=== PATIENT | male | born 1945 | race Caucasian/White ===

== ENCOUNTER 2020-06-05 11:17 | Emergency (ER) | payer MEDICARE, SELFPAY ==
[2020-06-05 11:43] VITALS: BP 157/96; PULSE 75; RESP 16; TEMP 36.5; O2SAT 99
--- NOTE | 2020-06-05 12:03 | ED.GENADULT ---
HPI - General Adult General Chief complaint: Wound/Laceration Stated complaint: laceration right thumb Time Seen by Provider: 06/05/20 12:03 Source: patient Mode of arrival: ambulatory Limitations: no limitations History of Present Illness HPI narrative: 74-year-old male patient presents to the [facility] with complaints of a laceration to the right thumb. Patient states he lacerated with a mandolin yesterday. Patient states that his last tetanus shot was probably over 8 years ago. Patient states that he is coming in today basically because he cannot get it to stop bleeding. Denies being on any blood thinners except for a daily 81 mg baby aspirin. Related Data Home Medications Medication Instructions Recorded Confirmed aspirin 81 mg tablet,delayed 81 mg PO DAILY 08/01/19 06/05/20 release cholecalciferol (vitamin D3) 50 2,000 unit PO DAILY 08/01/19 06/05/20 mcg (2,000 unit) capsule multivitamin 1 tablet PO DAILY 08/01/19 06/05/20 vitamin B complex 1 cap PO DAILY 08/01/19 06/05/20 folic acid 1 mg tablet 2 mg PO DAILY tablet 08/09/19 06/05/20 methotrexate sodium 2.5 mg tablet 20 mg PO WEEKLY tablet 08/09/19 06/05/20 golimumab 12.5 mg/mL intravenous 2 mg/kg IVPB .q8w ml 02/28/20 06/05/20 solution diclofenac sodium 75 mg PO PRN 06/05/20 06/05/20 Allergies Allergy/AdvReac Type Severity Reaction Status Date / Time nabumetone Allergy Mild Hives Verified 06/05/20 11:50 Review of Systems Review of Systems: Narrative: CONSTITUTIONAL: Denies fever, chills, or sweats. EYES: Denies visual changes, redness, or discharge. ENT: Denies rhinorrhea, congestion, sore throat, or otalgia. CARDIOVASCULAR: Denies chest pain, palpitations, or edema. RESPIRATORY: Denies cough or dyspnea. GASTROINTESTINAL: Denies abdominal pain, nausea, vomiting, or diarrhea. GENITOURINARY: Denies dysuria or hematuria. SKIN: Denies rash or itching. Positive laceration to right thumb since yesterday MUSCULOSKELETAL: Denies back pain, joint pain, or myalgia. NEUROLOGIC: Denies headache, numbness, or weakness. PSYCHIATRIC: Denies anxiety or depression. [facility] Past Medical History Medical History (Updated 06/05/20 @ 12:16 by MELITA Pereyra) Arthritis B12 deficiency BPH (benign prostatic hyperplasia) Essential (primary) hypertension Hypercholesterolemia Hyperlipidemia Lower extremity edema Neuropathy Prostate cancer Rectal polyp Rheumatoid arthritis Sleep apnea Vitamin D deficiency, unspecified Surgical History Surgical History (Updated 06/05/20 @ 12:06 by MELITA Pereyra) H/O inguinal hernia repair History of orthopedic surgery Right knee, heel spur surgery Hx of tonsillectomy Joint replaced Right TKA 01/2012, left TKA 04/2012 Family History Family History Mother Patient's mother is Carcinoma of colon Father Patient's father is Acute myocardial infarction Sibling Family history of malignant neoplasm of urinary bladder Social History Social History Smoking status: Former smoker Second hand tobacco smoke exposure: No Smoking end date: 08/21/77 Alcohol intake: current Drinks per week: 6 Substance use: never Gender identity (if verbalized by the patient): Male Comments At the time of my signature I agree with nursing past medical history, surgical, social, and family history. There is no relevant family history pertinent to the presenting complaint. Exam Narrative: Exam Narrative: GENERAL: Well-appearing, well-nourished, and in no acute distress. HEAD: Normocephalic, atraumatic. EYES: PERRLA and EOMI. ENT: Nares clear, no rhinorrhea or epistaxis. Mucous membranes moist. NECK: Supple. No lymphadenopathy CHEST: Clear to auscultation. No respiratory distress. HEART: Regular rate and rhythm. No murmur heard. Normal peripheral pulses. ABDOMEN: Soft, nontender, nondistended,
[2020-06-05] MEDS: TETANUS,DIPHTHERIA,AC PERTUSSIS ADULT (0.5 ML) BOOSTRIX IM (12:19)
[2020-06-05] MEDS: CELLULOSE OXIDIZED 2 x 14 INCH 1 PKT XX (12:23)
== END 2020-06-05 12:31 | disposition home or self-care (01) ==
PROVIDERS: Emergency Provider Nurse Practitioner Family; PCP Internal Medicine
DX: S61.001A Unspecified open wound of right thumb without damage to nail, initial encounter (principal); W27.8XXA Contact with other nonpowered hand tool, initial encounter; Z23 Encounter for immunization; M19.90 Unspecified osteoarthritis, unspecified site; N40.0 Benign prostatic hyperplasia without lower urinary tract symptoms; I10 Essential (primary) hypertension; E78.00 Pure hypercholesterolemia, unspecified; E78.5 Hyperlipidemia, unspecified; G47.33 Obstructive sleep apnea (adult) (pediatric); E55.9 Vitamin D deficiency, unspecified; M06.9 Rheumatoid arthritis, unspecified; Z85.46 Personal history of malignant neoplasm of prostate; G62.9 Polyneuropathy, unspecified; Z96.653 Presence of artificial knee joint, bilateral; Z87.891 Personal history of nicotine dependence
CPT/HCPCS: 12001; 90471; 90715; 99212; G0463

== ENCOUNTER 2021-09-15 10:53 | Outpatient (RCR) | payer MEDICARE, SELFPAY ==
[2021-09-15] MEDS: FAMOTIDINE 20 MG TABLET PO (13:22)
[2021-09-15] MEDS: ACETAMINOPHEN 325 MG TABLET 650 MG PO (13:22)
[2021-09-15] MEDS: diphenhydrAMINE HCl CAP 25 MG CAPSULE PO (13:22)
[2021-09-15 13:27] VITALS: BP 143/70; PULSE 88; RESP 20; TEMP 36.1; O2SAT 99
[2021-09-15 14:15] VITALS: BP 116/67; PULSE 61; O2SAT 94
[2021-09-15 14:58] VITALS: BP 145/69; PULSE 82; O2SAT 97
== END 2021-09-15 17:00 ==
LOC: AMCINF 10:53
PROVIDERS: PCP Internal Medicine; Visit Provider Internal Medicine Hematology & Oncology
DX: U07.1 COVID-19 (principal); I10 Essential (primary) hypertension; Z85.46 Personal history of malignant neoplasm of prostate
CPT/HCPCS: A9270; M0247; Q0247

== ENCOUNTER 2021-12-14 09:36 | Outpatient (CLI) | payer MEDICARE, SELFPAY ==
--- NOTE | 2021-12-14 11:00 | NEURO_ITS ---
Impression: # Complains of numbness of hands. # Bilateral Carpal Tunnel Syndrome, left more than right. # Bilateral ulnar neuropathy across the elbows. # Mildly abnormal needle/EMG exam. Nerve Conduction Studies Anti Sensory Summary Table Stim Site NR Peak (ms) P-T Amp (?V) Site1 Site2 Delta-P (ms) Dist (cm) Ignacio (m/s) Left Median Anti Sensory (2-3nd Digit) Wrist 5.3 15.0 Wrist 2-3nd Digit 5.3 14.0 26 Wrist 5.3 8.3 Wrist 2-3nd Digit 5.3 14.0 26 Right Median Anti Sensory (2-3nd Digit) Wrist 5.0 14.1 Wrist 2-3nd Digit 5.0 14.0 28 Wrist 4.6 5.2 Wrist 2-3nd Digit 5.0 14.0 28 Left Radial Anti Sensory (Base 1st Digit) Wrist 2.6 6.8 Wrist Base 1st Digit 2.6 0.0 Right Radial Anti Sensory (Base 1st Digit) Wrist 2.8 5.5 Wrist Base 1st Digit 2.8 0.0 Left Ulnar Anti Sensory (5th Digit) Wrist 2.8 12.8 Wrist 5th Digit 2.8 14.0 50 Right Ulnar Anti Sensory (5th Digit) Wrist 3.8 10.8 Wrist 5th Digit 3.8 14.0 37 Motor Summary Table Stim Site NR Onset (ms) O-P Amp (mV) Site1 Site2 Delta-0 (ms) Dist (cm) Ignacio (m/s) Left Median Motor (Abd Poll Brev) Wrist 5.6 1.4 Elbow Wrist 6.7 32.0 48 Elbow 12.3 1.3 Right Median Motor (Abd Poll Brev) Wrist 4.6 2.7 Elbow Wrist 5.6 29.0 52 Elbow 10.2 2.4 Left Ulnar Motor (Abd Dig Minimi) Wrist 3.0 4.5 A Elbow Wrist 7.4 34.0 46 A Elbow 10.4 1.9 B Elbow Wrist 5.7 28.0 49 B Elbow 8.7 1.9 Right Ulnar Motor (Abd Dig Minimi) Wrist 2.7 4.6 A Elbow Wrist 7.5 31.0 41 A Elbow 10.2 2.8 B Elbow Wrist 5.0 23.0 46 B Elbow 7.7 3.3 F Wave Studies NR F-Lat (ms) L-R F-Lat (ms) Left Median (Mrkrs) (Abd Poll Brev) 31.45 0.99 Right Median (Mrkrs) (Abd Poll Brev) 32.45 0.99 Left Ulnar (Mrkrs) (Abd Dig Min) 32.15 2.31 Right Ulnar (Mrkrs) (Abd Dig Min) 29.84 2.31 EMG Side Muscle Nerve Root Ins Act Fibs Amp Dur Recrt Comment Right 1stDorInt Ulnar C8-T1 Nml Nml Nml >12ms Reduced Right Ext Indicis Radial (Post Int) C7-8 Nml Nml Nml Nml Nml Right Ext Digitorum Radial (Post Int) C7-8 Nml Nml Nml Nml Nml Right BrachioRad Radial C5-6 Nml Nml Nml Nml Nml Right PronatorTeres Median C6-7 Nml Nml Nml Nml Nml Right Abd Poll Brev Median C8-T1 Nml Nml Nml >12ms Reduced Left 1stDorInt Ulnar C8-T1 Nml Nml Nml >12ms Reduced Left Ext Indicis Radial (Post Int) C7-8 Nml Nml Nml Nml Nml Left Ext Digitorum Radial (Post Int) C7-8 Nml Nml Nml Nml Nml Left BrachioRad Radial C5-6 Nml Nml Nml Nml Nml Left PronatorTeres Median C6-7 Nml Nml Nml Nml Nml Left Abd Poll Brev Median C8-T1 Nml Nml Nml >12ms Reduced MTDD
== END 2021-12-14 09:37 | disposition home or self-care (01) ==
PROVIDERS: PCP Internal Medicine; Visit Provider Internal Medicine
DX: R20.2 Paresthesia of skin (principal); G56.03 Carpal tunnel syndrome, bilateral upper limbs; G56.23 Lesion of ulnar nerve, bilateral upper limbs
CPT/HCPCS: 95886; 95911

== ENCOUNTER 2021-12-22 00:36 | Day surgery (SDC) | payer MEDICARE, SELFPAY ==
[2021-12-06 15:17] VITALS: BMI 40.9
--- NOTE | 2021-12-21 12:49 | PM.HPGS ---
History of Present Illness History of Present Illness Consent: Risks, benefits, and alternatives have been discussed and questions answered. Patient agrees to proceed with procedure. Chief complaint: hx of colon polyps Narrative: Beto Huang is a 76 year old male Was referred for colon cancer screening. He had 4 polyps removed about 5 years ago including 2 that were advanced adenomas. Review of Systems Review of Systems: All systems reviewed & are unremarkable except as noted in HPI and below PMFSH Past Medical History Medical History Arthritis B12 deficiency BPH (benign prostatic hyperplasia) Essential (primary) hypertension Hypercholesterolemia Hyperlipidemia Lower extremity edema Neuropathy Prostate cancer Rectal polyp Rheumatoid arthritis Sleep apnea Vitamin D deficiency, unspecified Surgical History Surgical History H/O inguinal hernia repair History of orthopedic surgery Right knee, heel spur surgery Hx of tonsillectomy Joint replaced Right TKA 01/2012, left TKA 04/2012 Family History Family History Mother Patient's mother is Carcinoma of colon Father Patient's father is Acute myocardial infarction Sibling Family history of malignant neoplasm of urinary bladder Social History Social History Smoking status: Former smoker Second hand tobacco smoke exposure: No Smoking end date: 08/21/77 Alcohol intake: current Drinks per week: 6 Substance use: never Living arrangements: with family Gender identity (if verbalized by the patient): Male Spiritual care concerns: No Meds Home Medications and Allergies Home Medications Medication Instructions Recorded Confirmed Type aspirin 81 mg tablet,delayed 81 mg PO DAILY 08/01/19 12/22/21 History release cholecalciferol (vitamin D3) 50 2,000 unit PO DAILY 08/01/19 12/22/21 History mcg (2,000 unit) capsule multivitamin 1 tablet PO DAILY 08/01/19 12/22/21 History vitamin B complex 1 cap PO DAILY 08/01/19 12/22/21 History folic acid 1 mg tablet 2 mg PO DAILY tablet 08/09/19 12/22/21 History methotrexate sodium 2.5 mg tablet 20 mg PO WEEKLY tablet 08/09/19 12/22/21 History loratadine 10 mg tablet 10 mg PO DAILY #30 tablet 11/09/20 05/04/22 Rx hydrochlorothiazide 25 mg tablet 50 mg PO DAILY #180 tablet 07/24/21 12/22/21 Rx diclofenac sodium 75 mg 75 mg PO PRN #60 tablet 07/27/21 12/22/21 Rx tablet,delayed release irbesartan 300 mg tablet 300 mg PO DAILY #90 tablet 08/24/21 12/22/21 Rx tamsulosin 0.4 mg capsule 0.4 mg PO DAILY #90 cap 09/19/21 12/22/21 Rx pravastatin 40 mg tablet 40 mg PO DAILY #90 tablet 09/26/21 12/22/21 Rx Cosentyx 120 mg SUBCUT MONTHLY 12/06/21 12/22/21 History verapamil 240 mg tablet,extended 240 mg PO DAILY #90 tablet 12/07/21 12/22/21 Rx release Allergies Allergy/AdvReac Type Severity Reaction Status Date / Time nabumetone Allergy Mild Hives Verified 12/22/21 06:25 Exam Resp: Auscultation: clear to auscultation bilaterally Cardio: Rate: regular rate Rhythm: regular rhythm GI: GI Palp: Yes Soft to palpation and No Tenderness to palpation present (GI) Assessment and Plan Assessment and plan (1) Colon cancer screening: Code(s): Z12.11 - Encounter for screening for malignant neoplasm of colon Status: Acute Assessment and Plan: Colonoscopy with possible biopsy or polypectomy or cautery or injection of substances.
--- NOTE | 2021-12-21 13:21 | WPDANESEPPF ---
Anes - Initial Pre Proc Eval Procedure: Operation Date: 12/22/21 07:30 Proposed Procedures p Screening Colonoscopy - Quan Lugo MD Date/Time: 12/21/21 13:21 Surgeon: Quan Lugo MD Pre Op Diagnosis: hx of colon polyps Patient Data Age: 76 Gender: M Height: 1.78 m Weight: 129.5 kg Allergies Allergy/AdvReac Type Severity Reaction Status Date / Time nabumetone Allergy Mild Hives Verified 12/22/21 06:25 Home Medications Medication Instructions Recorded Confirmed Type aspirin 81 mg tablet,delayed 81 mg PO DAILY 08/01/19 12/22/21 History release cholecalciferol (vitamin D3) 50 2,000 unit PO DAILY 08/01/19 12/22/21 History mcg (2,000 unit) capsule multivitamin 1 tablet PO DAILY 08/01/19 12/22/21 History vitamin B complex 1 cap PO DAILY 08/01/19 12/22/21 History folic acid 1 mg tablet 2 mg PO DAILY tablet 08/09/19 12/22/21 History methotrexate sodium 2.5 mg tablet 20 mg PO WEEKLY tablet 08/09/19 12/22/21 History loratadine 10 mg tablet 10 mg PO DAILY #30 tablet 06/29/20 12/22/21 Rx hydrochlorothiazide 25 mg tablet 50 mg PO DAILY #180 tablet 07/24/21 12/22/21 Rx diclofenac sodium 75 mg 75 mg PO PRN #60 tablet 07/27/21 12/22/21 Rx tablet,delayed release irbesartan 300 mg tablet 300 mg PO DAILY #90 tablet 08/24/21 12/22/21 Rx tamsulosin 0.4 mg capsule 0.4 mg PO DAILY #90 cap 09/19/21 12/22/21 Rx pravastatin 40 mg tablet 40 mg PO DAILY #90 tablet 09/26/21 12/22/21 Rx Cosentyx 120 mg SUBCUT MONTHLY 12/06/21 12/22/21 History verapamil 240 mg tablet,extended 240 mg PO DAILY #90 tablet 12/07/21 12/22/21 Rx release Patient hx anesthesia problems: none Family hx anesthesia problems: none Results Review: All pre-operative results and documents have been reviewed as part of the pre-operative evaluation. [facility] Past Medical History Medical History Arthritis B12 deficiency BPH (benign prostatic hyperplasia) Essential (primary) hypertension Hypercholesterolemia Hyperlipidemia Lower extremity edema Neuropathy Prostate cancer Rectal polyp Rheumatoid arthritis Sleep apnea Vitamin D deficiency, unspecified Surgical History Surgical History H/O inguinal hernia repair History of orthopedic surgery Right knee, heel spur surgery Hx of tonsillectomy Joint replaced Right TKA 01/2012, left TKA 04/2012 Family History Family History Mother Patient's mother is Carcinoma of colon Father Patient's father is Acute myocardial infarction Sibling Family history of malignant neoplasm of urinary bladder Social History Social History Smoking status: Former smoker Second hand tobacco smoke exposure: No Smoking end date: 08/21/77 Alcohol intake: current Drinks per week: 6 Substance use: never Gender identity (if verbalized by the patient): Male Spiritual care concerns: No Anes - Eval Final PreProcedure Day of Procedure 12/21/21 13:21 Patient weight: morbidly obese Heart: regular rate and rhythm Lungs: clear to auscultation and normal air movement Airway: Mallampati scale class II Neurological: alert and oriented Last oral intake: >/= 8 hours ASA classification: III Emergent: no Anesthetic plan: proceed Anesthesia type and monitoring: general GIVS and standard monitoring Results Review: All pre-operative results and documents have been reviewed as part of the pre-operative evaluation. Informed Consent: The patient's anesthetic plan and its attendant risks and benefits were discussed with the patient/family/POA. Questions were solicited and answers provided to the satisfaction of the patient/family/POA.
[2021-12-22 06:15] VITALS: BP 185/89; PULSE 68; RESP 18; TEMP 35.9; O2SAT 100; BMI 41.0
[2021-12-22] MEDS: LACTATED RINGERS 1,000 ML 150 ML IV CONT (06:34)
[2021-12-22] MEDS: SIMETHICONE ORAL SUSPENSION 20 MG/0.3 ML 30 ML BOTTLE 0.6 ML IRRIGATION (07:36)
[2021-12-22 07:43] VITALS: BP 128/83; PULSE 66; RESP 16; O2SAT 94
[2021-12-22 07:53] VITALS: BP 135/90; PULSE 64; RESP 26; O2SAT 98
[2021-12-22 08:03] VITALS: BP 141/90; PULSE 57; RESP 16; O2SAT 99
== END 2021-12-22 08:15 | disposition home or self-care (01) ==
PROVIDERS: PCP Internal Medicine; Visit Provider Internal Medicine Gastroenterology
PROC: 0DJD8ZZ Inspection of Lower Intestinal Tract, Via Natural or Artificial Opening Endoscopic (ICD-10-PCS; CPT 45378; principal; 2021-12-22 07:30)
DX: Z12.11 Encounter for screening for malignant neoplasm of colon (principal); Z86.010 Personal history of colon polyps; I10 Essential (primary) hypertension; E53.8 Deficiency of other specified B group vitamins; E78.00 Pure hypercholesterolemia, unspecified; E78.5 Hyperlipidemia, unspecified; E55.9 Vitamin D deficiency, unspecified; C61 Malignant neoplasm of prostate; M06.9 Rheumatoid arthritis, unspecified; M19.90 Unspecified osteoarthritis, unspecified site; N40.0 Benign prostatic hyperplasia without lower urinary tract symptoms; G47.30 Sleep apnea, unspecified; G62.9 Polyneuropathy, unspecified; Z96.653 Presence of artificial knee joint, bilateral; Z87.891 Personal history of nicotine dependence
CPT/HCPCS: G0105; J2704; J7120

== ENCOUNTER 2022-02-22 08:54 | Outpatient (CLI) | payer MEDICARE, SELFPAY ==
[2022-02-22 10:00] LABS: Anion Gap 7 mmol/L (8-16); Blood Urea Nitrogen 31 mg/dL (9-20); Calcium 9.4 mg/dL (8.4-10.2); Carbon Dioxide 28 mmol/L (22-30); Chloride 100 mmol/L (98-107); Estimated Glomerular Filt Rate 59; Glucose 124 mg/dL (65-110); Potassium 4.2 mmol/L (3.4-5.0); Sodium 135 mmol/L (137-145)
== END 2022-02-22 08:55 | disposition home or self-care (01) ==
PROVIDERS: Anesthesiology; PCP Internal Medicine; Visit Provider Plastic Surgery
DX: Z01.818 Encounter for other preprocedural examination (principal); Z79.899 Other long term (current) drug therapy
CPT/HCPCS: 36415; 80048

== ENCOUNTER 2022-02-24 01:13 | Day surgery (SDC) | payer MEDICARE, SELFPAY ==
[2022-02-18 13:20] VITALS: BMI 41.0
--- NOTE | 2022-02-18 13:31 | PC.NURSE ---
Report to the Outpatient Waiting Room, entrance under the green pavilion located off [facility], at time _1130_ on date _02/24/22_. OR Time: _1:30 PM_. - You and your visitor will be asked a series of questions to screen for COVID 19 for your protection. - Only one visitor is allowed at this time. - The patient visitor is requested to leave or wait in car when not with patient. - A mask is required within the hospital. Patients may have clear liquids (water, carbonated beverages, clear teas, apple juice) until 3 hours prior to surgery (1030 AM) with a maximum of 20 ounces. - No food from midnight until time of surgery Take the following medications with a SIP of water the morning of surgery: _VERAPAMIL_ Medications to discontinue per ANESTHESIA - ALL VITAMINS AND SUPPLEMENTS 3 DAYS PRIOR TO SURGERY, Date to take last dose 02/20/22_ Please no deodorant, or body powder the day of surgery. No jewelry (including any body piercings) or valuables the day of surgery, leave them at home. Please take a shower or bath the night before, or the morning of, surgery with an antibacterial soap. Wear comfortable, loose fitting clothing. Children are encouraged to wear pajamas. - Jewelry must be removed prior to entering the operating room. Rings and piercings that are not removed may be cut off. - The hospital will not accept responsibility for valuables. - Please leave all valuables, including medications, at home the day of surgery. If you are going home after surgery, a licensed airport shuttle driver must drive you home. - NO public transportation without another adult. - We recommend that an adult stay with you for 24 hours following discharge. - We also recommend that you do not drive, make important decision, drink alcoholic beverages, or take any drugs that were not prescribed by your health care provider for at least 24 hours after your discharge time. Follow any additional instructions given to you from your surgeon. If you or anyone in your household have experienced Covid symptoms in the past week, please notify your surgeon or the nurse liaison at the phone number below for possible testing. Telephone instructions given to ____PT and asked if any additional questions and then verbalized understanding. Patient advised to call surgeon office or pre surgery nurse liaison [phone] if any additional questions.
--- NOTE | 2022-02-24 07:14 | WPDHPUPDATE1 ---
History and Physical Update Update Date/Time: 02/24/22 07:14 History and Physical has been reviewed, including an updated exam of the patient. There are NO changes in the patient's condition. Risks, benefits, and alternatives have been discussed and questions answered. Patient agrees to proceed with procedure.
[2022-02-24 09:23] VITALS: BP 164/78; PULSE 70; RESP 18; TEMP 36.4; O2SAT 97
[2022-02-24] MEDS: LACTATED RINGERS 1,000 ML 30 ML IV CONT (09:49)
--- NOTE | 2022-02-24 09:50 | WPDANESEPPF ---
Anes - Initial Pre Proc Eval Procedure: Operation Date: 02/24/22 11:30 Proposed Procedures p Left Open Carpal Tunnel Release, Left Ulnar Neuroplasty at Elbow - Jaswant Elizabeth MD Date/Time: 02/24/22 09:50 Surgeon: Jaswant Elizabeth MD Pre Op Diagnosis: left carpal and cubital tunnel syndrome Patient Data Age: 76 Gender: M Height: 1.78 m Weight: 129.7 kg Allergies Allergy/AdvReac Type Severity Reaction Status Date / Time nabumetone Allergy Mild Hives Verified 02/18/22 13:14 Home Medications Medication Instructions Recorded Confirmed Type aspirin 81 mg tablet,delayed 81 mg PO QAM 08/01/19 02/18/22 History release (Adult Low Dose Aspirin) cholecalciferol (vitamin D3) 50 5,000 unit PO QAM 08/01/19 02/18/22 History mcg (2,000 unit) capsule multivitamin (Multiple Vitamins 1 tablet PO QAM 08/01/19 02/18/22 History tablet) vitamin B complex 1 cap PO QAM 08/01/19 02/18/22 History folic acid 1 mg tablet 2 mg PO QAM 08/09/19 02/18/22 History methotrexate sodium 2.5 mg tablet 20 mg PO WEEKLY 08/09/19 02/18/22 History Cosentyx 120 mg subcut MONTHLY 12/06/21 02/18/22 History diclofenac sodium 75 mg 75 mg PO PRN PRN Pain 02/18/22 02/18/22 History tablet,delayed release hydrochlorothiazide 25 mg tablet 50 mg PO QAM 02/18/22 02/18/22 History irbesartan 300 mg tablet 300 mg PO QAM 02/18/22 02/18/22 History pravastatin 40 mg tablet 40 mg PO HS 02/18/22 02/18/22 History tamsulosin 0.4 mg capsule (Flomax) 0.4 mg PO QAM 02/18/22 02/18/22 History verapamil 240 mg tablet,extended 240 mg PO QAM 02/18/22 02/18/22 History release Patient hx anesthesia problems: none Family hx anesthesia problems: none Results Review: All pre-operative results and documents have been reviewed as part of the pre-operative evaluation. COUNTS INCLUDE 234 BEDS AT THE [facility] Past Medical History Medical History Arthritis B12 deficiency BPH (benign prostatic hyperplasia) Essential (primary) hypertension Hypercholesterolemia Hyperlipidemia Lower extremity edema Neuropathy Prostate cancer Rectal polyp Rheumatoid arthritis Sleep apnea Vitamin D deficiency, unspecified Surgical History Surgical History H/O inguinal hernia repair History of orthopedic surgery Right knee, heel spur surgery Hx of tonsillectomy Joint replaced Right TKA 01/2012, left TKA 04/2012 Family History Family History Mother Patient's mother is Carcinoma of colon Father Patient's father is Acute myocardial infarction Sibling Family history of malignant neoplasm of urinary bladder Social History Social History Smoking status: Former smoker Tobacco type: cigarettes Second hand tobacco smoke exposure: No Smoking end date: 08/21/77 Additional smoking assessment comments: PT UNABLE TO RECALL SMOKING HX - STATES QUIT 1977 Alcohol intake: current Drinks per week: 6 Substance use: never Substance use type: does not use Living arrangements: with family Gender identity (if verbalized by the patient): Male Spiritual care concerns: No Anes - Eval Final PreProcedure Day of Procedure 02/24/22 09:50 Patient weight: morbidly obese Heart: regular rate and rhythm Lungs: clear to auscultation Airway: Mallampati scale class II Neurological: alert and oriented Last oral intake: >/= 8 hours ASA classification: III Emergent: no Anesthetic plan: proceed Anesthesia type and monitoring: general GIVS and standard monitoring Results Review: All pre-operative results and documents have been reviewed as part of the pre-operative evaluation. Informed Consent: The patient's anesthetic plan and its attendant risks and benefits were discussed with the patient/family/POA. Questions were solicited and answers provided to the satisfaction of
[2022-02-24] MEDS: BACITRACIN OINTMENT 15 GM TUBE 1 APPLIC TOPICAL (12:47)
[2022-02-24 13:09] VITALS: BP 118/95; PULSE 72; RESP 18; TEMP 36.4; O2SAT 92
--- NOTE | 2022-02-24 13:21 | W.PM.PROC2 ---
Procedure Note - Detailed Date of Procedure 02/24/22 Pre-op Diagnosis left carpal and cubital tunnel syndrome Post-op Diagnosis Same Procedure Performed Left open carpal tunnel release and left ulnar neuroplasty at the elbow Surgeon Jaswant Elizabeth MD [employer] Skiving Machine Operator Debi Anesthesia [facility] Description of Procedure The 2 surgical sites were marked on the patient's left upper extremity in the holding area. He was then taken to the operating room where he was placed supine on the operating table. He was given IV sedation as the extremity was prepped and draped in usual fashion. A time-out was held and confirmed. The 2 surgical sites were again marked and locally infiltrated with 1% lidocaine with epinephrine. The extremity was exsanguinated and the tourniquet inflated to 250 mmHg. The incision was made 1st in the palm as marked and dissected bluntly through the subcutaneous tissue and just through the palmar aponeurosis. A large persistent median artery was identified. This was dissected and retracted out of the way for the remainder of the case. The carpal retinaculum was incised with a 15 blade. Under 3 point retraction it was divided distally and proximally to completely release it. The skin wound was then closed with interrupted 4-0 nylon suture. The elbow was flexed and supported on folded towels. The incision was made as marked. Dissection was carried out through the subcutaneous tissue to the interspace between the medial epicondyle on the olecranon. Bleeding points were electrocoagulated along the way. The ulnar nerve was identified proximal to the medial epicondyle. Proximally it was almost encased with a fatty mass possibly consistent with a lipoma. This was divided easily. Dissecting distally the nerve dives under Griggs's ligament. This ligament was divided carefully the nerve seemed to be boggy through this area. Complete release was obtained and the dissection was carried distally into the flexor muscle fascia.. The nerve did not sublux. The tourniquet was released and additional bleeding points were electrocoagulated. This wound was closed with intradermal 3-0 Monocryl suture at multiple sites and the wound dressed with Xeroform and bulky gauze. The tourniquet had been released carpal tunnel dressing was applied. The patient was discharged in stable condition he is to be discharged home with a prescription for hydrocodone 5/325 7. Estimated Blood Loss 5 Drains No Packing No Pathology None sent Complications No immediate complications Condition Stable Disposition Other
[2022-02-24 13:39] VITALS: BP 132/71; PULSE 62; RESP 18; O2SAT 97
[2022-02-24 14:09] VITALS: BP 132/72; PULSE 58; RESP 18; O2SAT 95
[2022-02-24 14:32] VITALS: BP 139/72; PULSE 58; RESP 18; O2SAT 97
== END 2022-02-24 14:33 | disposition home or self-care (01) ==
PROVIDERS: PCP Internal Medicine; Visit Provider Plastic Surgery
PROC: (CPT 64721; principal; 2022-02-24 11:30)
DX: G56.02 Carpal tunnel syndrome, left upper limb (principal); G56.22 Lesion of ulnar nerve, left upper limb; I10 Essential (primary) hypertension; E78.00 Pure hypercholesterolemia, unspecified; E78.5 Hyperlipidemia, unspecified; N40.0 Benign prostatic hyperplasia without lower urinary tract symptoms; M06.9 Rheumatoid arthritis, unspecified; E55.9 Vitamin D deficiency, unspecified; E53.8 Deficiency of other specified B group vitamins; G62.9 Polyneuropathy, unspecified; Z85.46 Personal history of malignant neoplasm of prostate; Z79.82 Long term (current) use of aspirin; Z87.891 Personal history of nicotine dependence; E66.01 Morbid (severe) obesity due to excess calories; Z68.38 Body mass index [BMI] 38.0-38.9, adult
CPT/HCPCS: 64721; 64718; A9270; J1100; J2250; J2405; J2704; J3010; J7120

== ENCOUNTER 2022-02-27 10:13 | Emergency (ER) | payer MEDICARE, SELFPAY ==
[2022-02-27 10:29] VITALS: BP 182/93; PULSE 119; RESP 22; TEMP 37.8; O2SAT 96
[2022-02-27 12:00] VITALS: BP 168/89; PULSE 80; RESP 18; TEMP 36.7; O2SAT 99
[2022-02-27] MEDS: HYDROcodone/acetaminophen (*CRX) 7.5-325 MG TABLET 1 TAB PO (12:52)
[2022-02-27] MEDS: KETOROLAC (*BKC) 60 MG/2 ML VIAL IM (12:54)
[2022-02-27 13:00] VITALS: BP 160/80; PULSE 84; RESP 18; TEMP 36.8; O2SAT 100
--- NOTE | 2022-02-27 13:01 | ED.UPPEXIN ---
HPI - Extremity Injury (Upper) General Chief Complaint: Extremity Injury, Upper Stated Complaint: left hand pain after surgery Time Seen by Provider: 02/27/22 11:48 History of Present Illness HPI narrative: 76-year-old male presents emergency room secondary pain to his left upper extremity. 3 to 4 days ago he had carpal tunnel release in his right wrist as well as the right elbow. He has been try to keep it elevated put ice to it. He took the pain medication he was given. Despite this continues to have excruciating pain most predominantly to the left hand. Denies any chills or fevers. Got no drainage from the incision site to the palmar aspect of the left hand. He has taken his pain medications and is almost out of them but states is not getting significant relief with them. Does not have a follow-up with his surgeon until another 1 and half to 2 weeks. Related Data Home Medications Medication Instructions Recorded Confirmed aspirin 81 mg tablet,delayed 81 mg PO QAM 08/01/19 02/24/22 release (Adult Low Dose Aspirin) cholecalciferol (vitamin D3) 50 5,000 unit PO QAM 08/01/19 02/24/22 mcg (2,000 unit) capsule multivitamin (Multiple Vitamins 1 tablet PO QAM 08/01/19 02/24/22 tablet) vitamin B complex 1 cap PO QAM 08/01/19 02/24/22 folic acid 1 mg tablet 2 mg PO QAM 08/09/19 02/24/22 methotrexate sodium 2.5 mg tablet 20 mg PO WEEKLY 08/09/19 02/24/22 Cosentyx 120 mg subcut MONTHLY 12/06/21 02/24/22 diclofenac sodium 75 mg 75 mg PO PRN PRN Pain 02/18/22 02/24/22 tablet,delayed release hydrochlorothiazide 25 mg tablet 50 mg PO QAM 02/18/22 02/24/22 irbesartan 300 mg tablet 300 mg PO QAM 02/18/22 02/24/22 pravastatin 40 mg tablet 40 mg PO HS 02/18/22 02/24/22 tamsulosin 0.4 mg capsule (Flomax) 0.4 mg PO QAM 02/18/22 02/24/22 verapamil 240 mg tablet,extended 240 mg PO QAM 02/18/22 02/24/22 release Allergies Allergy/AdvReac Type Severity Reaction Status Date / Time nabumetone Allergy Mild Hives Verified 02/27/22 10:31 Review of Systems Review of Systems: CONSTITUTIONAL: Denies fever, chills, or sweats. EYES: Denies visual changes, redness, or discharge. ENT: Denies rhinorrhea, congestion, sore throat, or otalgia. CARDIOVASCULAR: Denies chest pain, palpitations, or edema. RESPIRATORY: Denies cough or dyspnea. GASTROINTESTINAL: Denies abdominal pain, nausea, vomiting, or diarrhea. GENITOURINARY: Denies dysuria or hematuria. SKIN: Denies rash or itching. MUSCULOSKELETAL: Noted significant pain in the left elbow and left wrist as noted in HPI. NEUROLOGIC: Denies headache, numbness, or weakness. PSYCHIATRIC: Denies anxiety or depression. [facility] Past Medical History Medical History Arthritis B12 deficiency BPH (benign prostatic hyperplasia) Essential (primary) hypertension Hypercholesterolemia Hyperlipidemia Lower extremity edema Neuropathy Prostate cancer Rectal polyp Rheumatoid arthritis Sleep apnea Vitamin D deficiency, unspecified Surgical History Surgical History H/O inguinal hernia repair History of orthopedic surgery Right knee, heel spur surgery Hx of tonsillectomy Joint replaced Right TKA 01/2012, left TKA 04/2012 Family History Family History Mother Patient's mother is Carcinoma of colon Father Patient's father is Acute myocardial infarction Sibling Family history of malignant neoplasm of urinary bladder Social History Social History Smoking status: Former smoker Tobacco type: cigarettes Second hand tobacco smoke exposure: No Smoking end date: 08/21/77 Additional smoking assessment comments: PT UNABLE TO RECALL SMOKING HX - STATES QUIT 1977 Alcohol intake: current Drinks per week: 6 Substance use: never Substance use type: does not use
== END 2022-02-27 13:54 | disposition home or self-care (01) ==
PROVIDERS: Emergency Provider Emergency Medicine; PCP Internal Medicine
DX: G89.18 Other acute postprocedural pain (principal); M79.642 Pain in left hand; N40.0 Benign prostatic hyperplasia without lower urinary tract symptoms; I10 Essential (primary) hypertension; E78.5 Hyperlipidemia, unspecified; G62.9 Polyneuropathy, unspecified; M06.9 Rheumatoid arthritis, unspecified; G47.30 Sleep apnea, unspecified; E53.8 Deficiency of other specified B group vitamins; E55.9 Vitamin D deficiency, unspecified; Z96.653 Presence of artificial knee joint, bilateral; Z87.19 Personal history of other diseases of the digestive system; Z79.82 Long term (current) use of aspirin; Z87.891 Personal history of nicotine dependence
CPT/HCPCS: 96372; 99283; A9270; J1885

== ENCOUNTER 2022-04-11 16:18 | Emergency (ER) | payer MEDICARE, SELFPAY ==
[2022-04-11 16:24] VITALS: BP 163/84; PULSE 87; RESP 18; TEMP 36.3; O2SAT 99
[2022-04-11 16:29] VITALS: BP 163/84; PULSE 87; RESP 18; TEMP 36.3; O2SAT 99
--- NOTE | 2022-04-11 16:32 | ED.EAR ---
HPI - Ear Problem General Chief complaint: Ear Stated complaint: left ear clogged Time Seen by Provider: 04/11/22 16:32 Source: patient, RN notes reviewed and old records reviewed Mode of arrival: ambulatory Limitations: no limitations History of Present Illness HPI Narrative: 76-year-old male presents to the [facility] with complaints of decreased hearing in the left ear for the last 4 to 5 days. No pain. No other signs or symptoms. Wanted to make sure there is nothing blocking the canal. Had tried to make an appointment with Dr. Knight but cannot be seen until May. Related Data Home Medications Medication Instructions Recorded Confirmed aspirin 81 mg tablet,delayed 81 mg PO QAM 08/01/19 04/11/22 release (Adult Low Dose Aspirin) cholecalciferol (vitamin D3) 50 5,000 unit PO QAM 08/01/19 04/11/22 mcg (2,000 unit) capsule vitamin B complex 1 cap PO QAM 08/01/19 04/11/22 folic acid 1 mg tablet 2 mg PO QAM 08/09/19 04/11/22 methotrexate sodium 2.5 mg tablet 20 mg PO WEEKLY 08/09/19 04/11/22 Cosentyx 120 mg subcut MONTHLY 12/06/21 04/11/22 diclofenac sodium 75 mg 75 mg PO PRN PRN Pain 02/18/22 04/11/22 tablet,delayed release hydrochlorothiazide 25 mg tablet 50 mg PO QAM 02/18/22 04/11/22 irbesartan 300 mg tablet 300 mg PO QAM 02/18/22 04/11/22 pravastatin 40 mg tablet 40 mg PO HS 02/18/22 04/11/22 tamsulosin 0.4 mg capsule (Flomax) 0.4 mg PO QAM 02/18/22 04/11/22 verapamil 240 mg tablet,extended 240 mg PO QAM 02/18/22 04/11/22 release Allergies Allergy/AdvReac Type Severity Reaction Status Date / Time nabumetone Allergy Mild Hives Verified 04/11/22 16:26 Review of Systems Review of Systems: All systems reviewed & are unremarkable except as noted in HPI and below Constitutional: Constitutional: Reports no additional constitutional complaints, Denies chills and Denies fever(s) Eyes: Eyes: Reports no additional eye complaints ENT: Reports as per HPI Cardiovascular: Cardiovascular: Reports no additional cardiovascular complaints Respiratory: Respiratory: Reports no additional respiratory complaints Gastrointestinal: Gastrointestinal: Reports no additional gastrointestinal complaints Musculoskeletal: Musculoskeletal: Reports no additional musculoskeletal complaints Integumentary/Breasts: Skin/Breast: Reports system reviewed and no additional complaints, except as docu Neurologic: Reports system reviewed and no additional complaints, except as documented Psychiatric: Psychiatric: Reports no additional psychiatric complaints Allergic/Immunologic: Allergic/Immunologic: Reports no additional allergic/immunologic complaints PMFSH Past Medical History Medical History Arthritis B12 deficiency BPH (benign prostatic hyperplasia) Essential (primary) hypertension Hypercholesterolemia Hyperlipidemia Lower extremity edema Neuropathy Prostate cancer Rectal polyp Rheumatoid arthritis Sleep apnea Vitamin D deficiency, unspecified Surgical History Surgical History H/O inguinal hernia repair History of orthopedic surgery Right knee, heel spur surgery Hx of tonsillectomy Joint replaced Right TKA 01/2012, left TKA 04/2012 Family History Family History Mother Patient's mother is Carcinoma of colon Father Patient's father is Acute myocardial infarction Sibling Family history of malignant neoplasm of urinary bladder Social History Social History Smoking status: Former smoker Tobacco type: cigarettes Second hand tobacco smoke exposure: No Smoking end date: 08/21/77 Additional smoking assessment comments: PT UNABLE TO RECALL SMOKING HX - STATES QUIT 1977 Alcohol intake: current Drinks per week: 6 Substance use: never Substance use type: does not
== END 2022-04-11 16:47 | disposition home or self-care (01) ==
PROVIDERS: Emergency Provider Nurse Practitioner; PCP Internal Medicine
DX: H65.03 Acute serous otitis media, bilateral (principal); H91.92 Unspecified hearing loss, left ear; Z87.891 Personal history of nicotine dependence; N40.0 Benign prostatic hyperplasia without lower urinary tract symptoms; I10 Essential (primary) hypertension; E78.00 Pure hypercholesterolemia, unspecified; E78.5 Hyperlipidemia, unspecified; M19.90 Unspecified osteoarthritis, unspecified site; M06.9 Rheumatoid arthritis, unspecified; G47.30 Sleep apnea, unspecified; G62.9 Polyneuropathy, unspecified; Z85.46 Personal history of malignant neoplasm of prostate; E55.9 Vitamin D deficiency, unspecified; Z79.82 Long term (current) use of aspirin
CPT/HCPCS: 99211; G0463

== ENCOUNTER 2022-04-27 15:33 | Outpatient (CLI) | payer MEDICARE, SELFPAY ==
--- NOTE | ~2022-04-27 | MR_ITS ---
EXAMINATION: MR brain IAC wo/w con DATE: 04/27/2022 16:44 INDICATION: Sudden left-sided hearing loss. TECHNIQUE: Magnetic resonance imaging (MRI) of the brain, brainstem, and internal auditory canals was performed without and with 20 mL MultiHance intravenous contrast. COMPARISON: None. FINDINGS: There are scattered areas of nonspecific increased T2-weighted signal intensity in the cere bral white matter, which is within normal limits for the patient's age. There is no intracranial hemo rrhage, acute infarction, or abnormal intracranial mass lesion. The ventricles are normal in size. Th ere is mild mucosal thickening in the ethmoid sinuses. There are likely changes of ocular lens replac ement surgeries. The internal auditory canals and inner and middle ears are normal. The mastoid air c ells are normal. IMPRESSION: 1. Normal brain. Reviewed, dictated and finalized at location A. IMPRESSION: 1. Normal brain.
== END 2022-04-27 15:34 | disposition home or self-care (01) ==
PROVIDERS: PCP Internal Medicine; Visit Provider Otolaryngology
DX: H91.20 Sudden idiopathic hearing loss, unspecified ear (principal)
CPT/HCPCS: 70553; A9577

== ENCOUNTER 2022-07-20 08:55 | Outpatient (CLI) | payer MEDICARE, SELFPAY ==
--- NOTE | ~2022-07-20 | XR_ITS ---
XR shoulder RT min 2V DATE: 07/20/2022 09:29 INDICATION: Anterior right shoulder pain and popping TECHNIQUE: 4 views of right shoulder COMPARISON: None FINDINGS: There is severe joint space narrowing/obliteration and prominent right humeral head spurrin g at the right glenohumeral joint, consistent with severe glenohumeral osteoarthritis. Mild degenerative change of the right acromioclavicular joint. No fracture or dislocation, periosteal reaction or bone destruction or abnormal soft tissue calcifica tion of the right shoulder. IMPRESSION: Severe right glenohumeral osteoarthritis Reviewed, dictated and finalized at location B. ICATION DEVELOPMENT DIRECTOR
== END 2022-07-20 08:56 | disposition home or self-care (01) ==
PROVIDERS: PCP Internal Medicine; Visit Provider Internal Medicine
DX: M19.011 Primary osteoarthritis, right shoulder (principal)
CPT/HCPCS: 73030

== ENCOUNTER 2022-12-01 08:33 | Outpatient (CLI) | payer MEDICARE, SELFPAY ==
--- NOTE | ~2022-12-01 | CT_ITS ---
CT of the Abdomen and Pelvis: Indication: Gross hematuria Technique: 2.5 mm axial scans were obtained through the abdomen and pelvis prior to and following in travenous administration of 130 cc of Omnipaque 350. Dose reduction technique was used on this scan b y utilizing automated exposure control and iterative reconstruction technique. The dose-length produc t (DLP) was 2847.14 mGy-cm. COMPARISON: 08/10/2018 Findings: Scans through the lung bases are unremarkable. The liver, spleen, pancreas, gallbladder, and adrenal glands are within normal limits. Left renal cys ts are present. Punctate nonobstructing left lower pole renal stone present. There are atheroscleroti c calcifications of the aorta. No lymphadenopathy. No bowel obstruction or bowel wall thickening. There is no evidence to suggest acute appendicitis. Images through the pelvis were performed. Urinary bladder unremarkable. Prostate gland is enlarged. S mall fat-containing right inguinal hernia present. Impression: Punctate nonobstructing left lower pole renal stone. Enlarged prostate gland. Small fat-containing right inguinal hernia. Reviewed, dictated and finalized at location M. Impression: Punctate nonobstructing left lower pole renal stone. Enlarged prostate gland. Small fat-containing right inguinal hernia.
[2022-12-01 09:06] LABS: Estimated Glomerular Filt Rate 49
== END 2022-12-01 08:34 | disposition home or self-care (01) ==
PROVIDERS: PCP Internal Medicine; Visit Provider Physician Assistant Medical
DX: R31.0 Gross hematuria (principal); N20.0 Calculus of kidney; N40.0 Benign prostatic hyperplasia without lower urinary tract symptoms; K40.90 Unilateral inguinal hernia, without obstruction or gangrene, not specified as recurrent
CPT/HCPCS: 74178; Q9967

== ENCOUNTER 2023-05-30 09:55 | Outpatient (CLI) | payer MEDICARE, SELFPAY ==
--- NOTE | 2023-05-30 10:06 | ECG_ITS ---
Measurements Intervals [place] Rate: 91 P: 42 MS: 179 QRS: 16 QRSD: 89 T: 21 QT: 333 QTc: 411 Interpretive Statements SINUS RHYTHM LOW QRS VOLTAGE IN PRECORDIAL LEADS [QRS DEFLECTION < 1.0 mV IN CHEST LEADS] POSSIBLE RIGHT VENTRICULAR CONDUCTION DELAY [RSR (QR) IN V1/V2] POOR R-WAVE PROGRESSION NO PREVIOUS ECG AVAILABLE FOR COMPARISON Electronically Signed On 05-30-2023 16:24:41 CDT by Suzie Dee M.D.
== END 2023-05-30 09:56 | disposition home or self-care (01) ==
LOC: ANHSURGERY 10:01
PROVIDERS: PCP Internal Medicine; Visit Provider Urology
DX: Z01.818 Encounter for other preprocedural examination (principal); N21.0 Calculus in bladder; R93.1 Abnormal findings on diagnostic imaging of heart and coronary circulation
CPT/HCPCS: 93005

== ENCOUNTER 2023-05-30 10:35 | Outpatient (CLI) | payer MEDICARE, SELFPAY ==
--- NOTE | ~2023-05-30 | XR_ITS ---
Left Knee Technique: AP, lateral, and sunrise views were obtained. Clinical History: Pain COMPARISON: 09/01/2017 Findings: No fracture or dislocation is seen. Left knee arthroplasty hardware is in place. Soft tissu es are unremarkable. No joint effusion is seen. Impression: No acute abnormality. Left knee arthroplasty hardware in place. Reviewed, dictated and finalized at location M. Impression: No acute abnormality. Left knee arthroplasty hardware in place.
== END 2023-05-30 10:36 | disposition home or self-care (01) ==
PROVIDERS: PCP Internal Medicine; Visit Provider Internal Medicine
DX: M25.562 Pain in left knee (principal); Z96.698 Presence of other orthopedic joint implants
CPT/HCPCS: 73562; 93005

== ENCOUNTER 2023-06-08 01:55 | Day surgery (SDC) | payer MEDICARE, SELFPAY ==
--- NOTE | 2023-05-25 13:40 | PC.NURSE ---
Report to the Outpatient Waiting Room, entrance under the green pavilion located off [facility], at time _0745 on date __06/08/23 . Planned Procedure Time: ___45____. Time changes happen often and if your time is changed the preop area will call you the afternoon before. - You and your visitor will be asked to self-screen and do not enter if you have any COVID symptoms. - A mask is optional within the hospital at this time. Patients may have clear liquids (water, carbonated beverages, clear teas, apple juice) until 3 hours prior to surgery with a maximum of 20 ounces. - No food from midnight until time of surgery - Infants may have breast milk until 4 hours before surgery, infant formula 6 hours prior to surgery. - Children will be allowed to drink immediately following surgery. If applicable, please bring a bottle or sippy cup to assist with drinking. Juice, water, soda, and popsicles are readily available. For infants on formula, please bring formula the day of surgery. Pacifiers are allowed. Take the following medications with a SIP of water the morning of surgery: ___VERAPAMIL DO NOT STOP ANY OF YOUR OTHER PRESCRIPTION MEDICATIONS PRIOR TO SURGERY ?EXCEPT THE FOLLOWING Medications to discontinue per physician PT STATES HOLD ASPIRIN 7 DAYS PRE OP PER DR PEÑALOZA.Last dose05/31/23 Date to take last dose Please no make-up, nail cook islander, hairspray, perfume, deodorant, or body powder the day of surgery. No jewelry (including any body piercings) or valuables the day of surgery, leave them at home. Please take a shower or bath the night before, or the morning of, surgery with an antibacterial soap. Wear comfortable, loose fitting clothing. Children are encouraged to wear pajamas. - Jewelry must be removed prior to entering the operating room. Rings and piercings that are not removed may be cut off. - The hospital will not accept responsibility for valuables. - Please leave all valuables, including medications, at home the day of surgery. If you are going home after surgery, a licensed solid waste truck driver must drive you home. - NO public transportation without another adult if you receive anesthesia. - We recommend that an adult stay with you for 24 hours following discharge. - We also recommend that you do not drive, make important decision, drink alcoholic beverages, or take any drugs that were not prescribed by your health care provider for at least 24 hours after your discharge time. For Pediatric surgeries, we recommend two adults accompany the child home. Follow any additional instructions given to you from your surgeon. If you or anyone in your household have experienced Covid symptoms in the past week, please notify your surgeon or the nurse liaison at the phone number below for possible testing. Telephone instructions given to __PATIENT and asked if any additional questions and then verbalized understanding. Patient advised to call surgeon office or pre surgery nurse liaison [phone] if any additional questions.
[2023-05-25 15:23] VITALS: BMI 40.8
[2023-06-08] VITALS (7 sets, daily range): BP systolic 131–155; BP diastolic 71–88; PULSE 71–85; RESP 14–20; TEMP 36.4–36.9; O2SAT 95–99
--- NOTE | 2023-06-08 08:45 | WPDANESEPPF ---
Anes - Initial Pre Proc Eval Procedure: Operation Date: 06/08/23 09:45 Proposed Procedures p Cystoscopy, Urethral Dilatation, Removal of Small Bladder Stones - Chris Calabrese MD Date/Time: 06/08/23 08:45 Surgeon: Chris Calabrese MD Pre Op Diagnosis: bph, bladder stone Patient Data Age: 77 Gender: M Height: 1.78 m Weight: 129.3 kg Allergies Allergy/AdvReac Type Severity Reaction Status Date / Time nabumetone Allergy Mild Hives Verified 05/25/23 13:27 Home Medications Medication Instructions Recorded Confirmed Type aspirin 81 mg tablet,delayed 81 mg PO QAM 08/01/19 05/25/23 History release (Adult Low Dose Aspirin) folic acid 1 mg tablet 2 mg PO QAM 08/09/19 05/25/23 History methotrexate sodium 2.5 mg tablet 20 mg PO WEEKLY 08/09/19 05/25/23 History finasteride 5 mg tablet 5 mg PO DAILY 09/09/22 05/25/23 History pravastatin 40 mg tablet 40 mg PO HS #90 tabs 09/23/22 05/25/23 Rx loratadine-pseudoephedrine ER 10 1 tablet PO DAILY #30 tabs 10/17/22 05/25/23 Rx mg-240 mg tablet,extended [id number] (Claritin-D 24 Hour) hydrochlorothiazide 25 mg tablet 50 mg PO QAM #180 tabs 01/03/23 05/25/23 Rx irbesartan 300 mg tablet 300 mg PO DAILY #90 tabs 02/04/23 05/25/23 Rx upadacitinib 15 mg tablet,extended 15 mg PO DAILY 03/20/23 05/25/23 History release 24 hr (Rinvoq) verapamil 240 mg tablet,extended 240 mg PO QAM #90 tabs 05/28/23 Rx release Patient hx anesthesia problems: none Family hx anesthesia problems: none Results Review: All pre-operative results and documents have been reviewed as part of the pre-operative evaluation. [facility] Past Medical History Medical History Arthritis B12 deficiency Bowel obstruction (~2018) BPH (benign prostatic hyperplasia) Essential (primary) hypertension History of stress test Hypercholesterolemia Hyperlipidemia Hypertension Lower extremity edema Neuropathy Prostate cancer Rectal polyp Rheumatoid arthritis Sleep apnea Ulnar neuropathy at elbow of left upper extremity Vitamin D deficiency, unspecified Surgical History Surgical History H/O inguinal hernia repair History of carpal tunnel surgery of left wrist History of orthopedic surgery Right knee, heel spur surgery Hx of cataract surgery Hx of tonsillectomy Joint replaced Right TKA 01/2012, left TKA 04/2012 Family History Family History Mother Patient's mother is Carcinoma of colon Father Patient's father is Acute myocardial infarction Sibling Family history of malignant neoplasm of urinary bladder Social History Social History Smoking packs per day: 1 Smoking cigarettes per day: 20.0 Years smoked: 10 Smoking pack-years: 10.00 Smoking status: Former smoker Tobacco type: cigarettes Second hand tobacco smoke exposure: No Smoking end date: 08/21/77 Additional smoking assessment comments: PT UNABLE TO RECALL SMOKING HX - STATES QUIT 1977 Alcohol intake: current Drinks per week: 2 Substance use: never Substance use type: does not use Lack of Transportation: No Lack of Food: Never True Current Housing: I Have Housing Concerned About Future Housing: No Difficulty Paying Gas/Electric Bills: No Difficulty Paying for Meds: No Currently Unemployed: No Education: Trade/Vocational Certificate Difficulty w/ Childcare or Family Care: No Living arrangements: with family Gender identity (if verbalized by the patient): Male Spiritual care concerns: No Anes - Eval Final PreProcedure Day of Procedure 06/08/23 08:45 Patient weight: morbidly obese Heart: regular rate and rhythm Lungs: clear to auscultation Airway: Mallampati scale class III and special considerations poor opening Neurological: alert and o
--- NOTE | 2023-06-08 09:09 | WPDHPUPDATE1 ---
History and Physical Update Update Date/Time: 06/08/23 09:09 History and Physical has been reviewed, including an updated exam of the patient. There are NO changes in the patient's condition. Risks, benefits, and alternatives have been discussed and questions answered. Patient agrees to proceed with procedure.
[2023-06-08] MEDS: ceFAZolin 3 GM/D5W 100 ML 100 ML IVPB (09:16)
[2023-06-08] MEDS: LIDOCAINE HCL 2% GEL UROJET 10 ML PKG MUCOUS MEM (09:29)
[2023-06-08] MEDS: LACTATED RINGERS 1,000 ML 30 ML IV CONT (09:37)
--- NOTE | 2023-06-08 09:42 | W.PM.PROC2 ---
Procedure Note - Detailed Date of Procedure 06/08/23 Pre-op Diagnosis Bulbous urethral stricture, bladder stone Post-op Diagnosis Other (Bulbous urethral stricture) Procedure Performed Cystoscopy, urethral dilatation Surgeon Chris Calabrese MD Anesthesia General Description of Procedure The patient was brought to the operative suite where he was prepped and draped in a routine sterile fashion while in a dorsal lithotomy position after the uneventful induction of a general LMA anesthetic. Cystoscopy was undertaken with a 19F rigid cystoscope. There is able this urethral stricture causing significant obstruction. small bladder stone had identified the time of office cystoscopy was no longer present, suggesting that he spontaneously passed it. The prostatic urethral estimated length was 2.0cm. There was moderate obstruction of the prostatic urethra with small median lobe enlargement. The bladder itself was endoscopically normal without foreign body or neoplasm. The bladder mucosa was without hyperemia. There was a single orthotopic ureteral orifice bilaterally with clear efflux of urine. Using the Donis sounds I dilated the urethra and bladder neck from 18-30F. An 18 F Lynn catheter was left indwelling which I intend to leave short-term (ie. remove before he goes home). The bladder was emptied and the patient was taken to the recovery room in good condition Drains Yes Pathology None sent Complications No immediate complications Condition Stable Disposition PACU
--- NOTE | 2023-06-08 10:20 | SUR.PHASEI ---
Lynn catheter removed in PACU per Dr. Calabrese's order. 150ml of urine emptied from catheter after removal.
[2023-06-08] MEDS: oxyCODONE HCL (*CRX) 5 MG TAB IR PO (10:56)
== END 2023-06-08 11:21 | disposition home or self-care (01) ==
PROVIDERS: PCP Internal Medicine; Visit Provider Urology
PROC: 0T7D8ZZ Dilation of Urethra, Via Natural or Artificial Opening Endoscopic (ICD-10-PCS; CPT 52281; principal; 2023-06-08 09:45)
DX: N35.912 Unspecified bulbous urethral stricture, male (principal); I10 Essential (primary) hypertension; E78.00 Pure hypercholesterolemia, unspecified; M06.9 Rheumatoid arthritis, unspecified; E55.9 Vitamin D deficiency, unspecified; E53.8 Deficiency of other specified B group vitamins; G47.30 Sleep apnea, unspecified; N40.0 Benign prostatic hyperplasia without lower urinary tract symptoms; Z85.46 Personal history of malignant neoplasm of prostate; Z79.82 Long term (current) use of aspirin; Z87.891 Personal history of nicotine dependence; E66.01 Morbid (severe) obesity due to excess calories; Z68.41 Body mass index [BMI] 40.0-44.9, adult
CPT/HCPCS: 52281; A9270; J0690; J2405; J2704; J3010; J7120

== ENCOUNTER 2023-07-24 15:30 | Outpatient (CLI) | payer MEDICARE, SELFPAY ==
--- NOTE | ~2023-07-24 | XR_ITS ---
EXAMINATION: XR chest 2V 07/24/2023 15:51 INDICATION: Congestion and cough PROCEDURE: 2 view chest COMPARISON: 09/02/2010 FINDINGS: The lungs are clear. The cardiomediastinal silhouette is within normal limits. There are no pleural effusions. There is no pneumothorax suspected. IMPRESSION: 1: NO ACUTE CARDIOPULMONARY DISEASE. Reviewed, dictated and finalized at location B. NESS ECONOMIST
== END 2023-07-24 15:31 | disposition home or self-care (01) ==
PROVIDERS: PCP Internal Medicine; Visit Provider Physician Assistant
DX: R05.9 Cough, unspecified (principal)
CPT/HCPCS: 71046

== ENCOUNTER → 2023-07-28 07:36 | Outpatient (CLI) | payer MEDICARE, SELFPAY ==
--- NOTE | ~2023-07-28 | US_ITS ---
US right upper quadrant INDICATION: Elevated liver enzymes PROCEDURE: Realtime right upper abdominal ultrasound. COMPARISON: No prior studies for comparison. FINDINGS: The pancreas is normal without focal mass or pancreatic ductal dilation. Diffusely increas ed liver echotexture, consistent with fatty infiltration. There is normal directional flow in the po rtal vein. The gallbladder is normal without stones, gallbladder wall thickening or pericholecystic fluid. Comm on bile duct measures 5 mm. No sonographic Lanier's sign. Right renal echotexture is unremarkable. R ight kidney measures 11.9 cm. IMPRESSION: 1: Fatty infiltration of the liver. Reviewed, dictated and finalized at location B. S MANAGER PREARRANGED FUNERALS
== END ==
PROVIDERS: PCP Internal Medicine
DX: R74.8 Abnormal levels of other serum enzymes (principal); K76.0 Fatty (change of) liver, not elsewhere classified
CPT/HCPCS: 76705

== ENCOUNTER 2023-08-22 10:00 | Outpatient (CLI) | payer MEDICARE, SELFPAY ==
--- NOTE | ~2023-08-22 | NM_ITS ---
EXAMINATION: NM daniel stress w perfusion DATE: 08/22/2023 13:17 INDICATION: Shortness of breath TECHNIQUE: Rest images were obtained following intravenous administration of 10.2 mCi Tc99m tetrofosm in (Myoview). The patient was infused intravenously with Lexiscan (Regadenoson). Then, 31 mCi Tc99m t etrofosmin (Myoview) was administered intravenously, and stress images were obtained. Data was recons tructed into short axis and horizontal and vertical long axis SPECT images. Gated SPECT images were a lso obtained. COMPARISON: None. FINDINGS: There is no definite reversible or fixed perfusion abnormality to suggest ischemia or infar ction. There is normal left ventricular chamber size, wall motion and ejection fraction. Left ventr icular ejection fraction measures >70%. IMPRESSION: 1. Normal myocardial perfusion at rest and during stress. 2. Left ventricular ejection fraction measuring >70%. Reviewed, dictated and finalized at location A. [employer]
--- NOTE | 2023-08-22 10:24 | EST_ITS ---
Patient Info Name: Beto Huang Age: 77 years : 1945 Gender: Male Ht: 70 in Wt: 295 lbs BSA: 2.63 m2 HR: 70 bpm BP: 141 / 84 mmHg Heart Rhythm: Sinus Rhythm Exam Date: 08/22/2023 11:32 AM Exam Location: Echo Lab Patient Status: Outpatient Admit Date: 08/22/2023 Staff Ordering Physician: Shlomo Vega PA-C Attending Provider: Shlomo Vega PA-C Exercise Technologist: Linda Mir CT Exam Type: CA stress daniel w NM Study Info Indications R06.02 - Shortness of breath A regadenoson stress test was performed. Summary 1. No abnormal ST/T wave changes diagnostic of ischemia with Lexiscan. 2. Occasional PVCs. 3. Please correlate with nuclear medicine images, reported separately. 4. Stress test supervised by Chelle Beckett NP. Stress test interpreted by Suzie Dee MD. Protocol: Lexiscan Stress ECG Details Stage: REST Duration (min): 2 min : 19 sec HR (bpm): 77 SBP (mmHg): 141 DBP (mmHg): 84 Stage: REST Duration (min): 6 min : 25 sec HR (bpm): 80 SBP (mmHg): 141 DBP (mmHg): 84 Stage: STAGE 1 Duration (min): 0 min : 59 sec HR (bpm): 88 SBP (mmHg): 153 DBP (mmHg): 61 Stage: RECOVERY Duration (min): 1 min : 0 sec HR (bpm): 89 SBP (mmHg): 153 DBP (mmHg): 61 Stage: RECOVERY Duration (min): 2 min : 0 sec HR (bpm): 85 SBP (mmHg): 153 DBP (mmHg): 61 Stage: RECOVERY Duration (min): 3 min : 0 sec HR (bpm): 86 SBP (mmHg): 141 DBP (mmHg): 64 Stage: RECOVERY Duration (min): 3 min : 5 sec HR (bpm): 86 SBP (mmHg): 141 DBP (mmHg): 64 Rest HR: 80 bpm Peak HR: 91 bpm Rest Sys BP: 141 mmHg Peak Sys BP: 153 mmHg Max Pred HR: 145 bpm % Max Pred HR: 63 % Target HR: 123 bpm Max RPP: 13,923 bpm*mmHg Total Time: 1 min : 0 sec Rest Rogers BP: 84 mmHg Peak Rogers BP: 61 mmHg Total Dose: 0.4 mg Resting ECG Sinus rhythm. Incomplete right bundle branch block. Stress ECG Sinus rhythm. No abnormal ST/T wave changes diagnostic of ischemia with Lexiscan. Arrhythmias Occasional PVCs. Report Signatures
== END 2023-08-22 10:01 | disposition home or self-care (01) ==
PROVIDERS: PCP Internal Medicine; Visit Provider Physician Assistant
DX: R06.02 Shortness of breath (principal)
CPT/HCPCS: 78452; 93017; A9502; J2785

== ENCOUNTER 2023-11-30 15:56 | Outpatient (CLI) | payer MEDICARE, SELFPAY ==
--- NOTE | ~2023-11-30 | XR_ITS ---
XR hip LT min 2V 11/30/2023 16:10 Indication: Left hip pain Procedure: 2 views left hip Comparison: No prior studies for comparison. Findings: There is mild osteoarthritis of the left hip. No fracture, subluxation or dislocation. No s ignificant soft tissue abnormality. No foreign bodies. Impression: 1: Mild osteoarthritis of the left hip. Reviewed, dictated and finalized at location A. Impression: 1: Mild osteoarthritis of the left hip.
== END 2023-11-30 15:57 ==
PROVIDERS: PCP Orthopaedic Surgery; Visit Provider Physician Assistant
DX: M16.12 Unilateral primary osteoarthritis, left hip (principal)
CPT/HCPCS: 73502